=== PATIENT | female | born 1990 | race African-American/Black ===

== ENCOUNTER 2017-06-12 10:40 | Day surgery (SDC) | payer BC, OTHER ==
[2017-06-12 11:30] VITALS: BMI 28.3
[2017-06-12 11:38] VITALS: BP 119/77; TEMP 98.7
--- NOTE | 2017-06-12 13:16 | PRG ---
DATE OF SERVICE: 06/12/2017 PRIMARY OB: Dr. Rayshawn Regan CHIEF COMPLAINT: Decreased movement. HISTORY OF PRESENT ILLNESS: The patient is a 26-year-old G2, P0 female with an intrauterine pregnanc y at 34 weeks gestation who is presenting with decreased movement this morning when she woke up from bed. The patient has a history of a 37-week demise. The patient is being followed by Dr Jeison Regan and [facility]. The patient reports that the baby has been growing well and having appropriate reassuring results on weekly testing. The patient reports that she took her b lood pressure at home and noted it to be a little bit higher than she normally has experienced. The patient reports she has a history of chronic hypertension and was taken off medications with this pre gnancy and has had otherwise normal pressures up to now. The patient's biggest concern is well being and is worried about having another demise. The patient denies any recent illness, fever. She does report intermittent headaches, but has had th at through the . She denies vomiting. She does report some nausea. Denies chest pain, sh ortness of breath. Denies diarrhea, constipation. Denies rash, denies vaginal bleeding, leaking of fluid, urinary urgency. PAST MEDICAL HISTORY: Chronic hypertension. PAST SURGICAL HISTORY: Negative. ALLERGIES: No known drug allergies. MEDICATIONS: vitamins and aspirin. SOCIAL HISTORY: Denies drug, alcohol or tobacco use. OB LABS: Unavailable. REVIEW OF SYSTEMS: Per HPI. PHYSICAL EXAMINATION: VITAL SIGNS: Blood pressures have ranged from 119/77-132/76, heart rate in the 90s, satting 100% on room air. GENERAL: She appears to be in no acute distress. She is alert and oriented, and cooperative and ple asant to interact with. HEENT: Head is normocephalic, atraumatic. LUNGS: Clear to auscultation bilaterally. HEART: Regular rate and rhythm. ABDOMEN: Gravid, soft, nontender to palpation. EXTREMITIES: Nontender, nonedematous. GENITOURINARY: Has been deferred. heart tracing performed for decreased movement. Baseline was noted to be in the 140s wit h moderate long-term variability, positive accelerations, negative decelerations. Tocometer shows po ssibly irritability, not felt by the patient. A bedside ultrasound was performed for fluid assessmen t. Baby was noted to be in will breech presentation. There were several large pockets of fluid, on e being approximately 5 x 6 cm and the other one 3-1/2 to 4.5 cm, making the fluid assessment adequat e. ASSESSMENT AND PLAN: The patient is a 26-year-old G2, P1 female with an intrauterine at 34 weeks. The patient does report feeling the baby again since coming. Reassurance has been given to the patient as evidenced by a reactive NST and normal fluid level. She has an appointment next week with her doctor, Dr. Regan. She has been given labor precautions and has been counseled to r sujatha if she has any questions or concerns.
== END 2017-06-12 12:25 | disposition home or self-care (01) ==
LOC: L&D/OP 10:40
PROVIDERS: ATTEND Family Medicine
DX: O36.8130 Decreased fetal movements, third trimester, not applicable or unspecified (principal); O32.1XX0 Maternal care for breech presentation, not applicable or unspecified; O99.413 Diseases of the circulatory system complicating pregnancy, third trimester; I10 Essential (primary) hypertension; O99.89 Other specified diseases and conditions complicating pregnancy, childbirth and the puerperium; R11.2 Nausea with vomiting, unspecified; R51 Headache; Z79.82 Long term (current) use of aspirin; Z79.899 Other long term (current) drug therapy; Z3A.34 34 weeks gestation of pregnancy
CPT/HCPCS: 59025; 76815; 99282

== ENCOUNTER 2017-07-01 10:21 | Day surgery (SDC) | payer BC, OTHER ==
[2017-07-01 11:29] VITALS: BMI 27.3
--- NOTE | 2017-07-01 12:07 | ULT ---
BIOPHYSICAL PROFILE: Date: 07/01/17 HISTORY: Nonreactive stress test in office. TECHNIQUE: Multiplanar Maria scale and color Doppler images were obtained in a transabdominal ultrasound. T his is done for a biophysical profile. FINDINGS: There is a single live intrauterine with heart rate of 153 beats/minute. SALAS is 10.2 cm, wh ich is normal. A biophysical profile was performed. The fetus scored 8 of 8, which is normal. IMPRESSION: Normal biophysical profile. POS: [facility]
--- NOTE | 2017-07-01 13:01 | PDOC.EVN ---
Event Note - Event Note Event Note: Triage note @1300: Patient here per Dr Regan who is currently at [facility]. The patient was sent to L&D for NST and BPP. EGA is 35 weeks. I was asked to clear the patient for discharge home. The NST has moderate variabillity with limited accels. However, BPP was alsp performd per Dr. Regan's order and the score was 8/8. Total score is 8/10 ( limited accels for NST). History reviewed. No evidence of PTL at this time. BPs wnl. She has an appointment this with Dr Regan. OK for outpatient care. Patient seen at bedside. Info provided.
== END 2017-07-01 13:01 | disposition home or self-care (01) ==
LOC: L&D/OP 10:21
PROVIDERS: ATTEND Family Medicine
DX: O10.913 Unspecified pre-existing hypertension complicating pregnancy, third trimester (principal); Z3A.35 35 weeks gestation of pregnancy; Z79.82 Long term (current) use of aspirin; Z79.899 Other long term (current) drug therapy
CPT/HCPCS: 59025; 76819; 99281

== ENCOUNTER 2018-09-05 11:36 | Emergency (ER) | payer BC, OTHER ==
[2018-09-05 12:31] LABS: #Eosinphils 0.1 thou/uL (0.0-0.7); #Lymphocytes 2.1 thou/uL (1.20-3.40); #Monocytes 0.4 thou/uL (0.11-0.59); #Neutrophils 6.8 thou/uL (1.40-6.50); %Basophils 0.1 % (0.0-1.0); %Eosinophils 0.8 % (0.0-10.0); %Lymphocytes 21.9 % (21.0-51.0); %Monocytes 4.7 % (0.0-10.0); %Neutrophils 72.5 % (42.0-75.0); Hemoglobin 12.2 g/dL (12.0-16.0); Mean Corpuscular HGB CONC 34.3 g/dL (32.0-36.0); Mean Corpuscular Hemoglobin 31.1 pg (27.0-31.0); Mean Corpuscular Volume 90.6 fL (78.0-98.0); Mean Platelet Volume 8.5 fL (7.4-10.4); Platelet Count 222 thou/uL (130-400); RBC Distribution Width 12.1 % (11.5-14.5); Red Blood Cell (RBC) Count 3.94 mill/uL (4.20-5.40); White Blood Cell (WBC) Count 9.4 thou/uL (4.8-10.8)
[2018-09-05 12:59] LABS: ALT (SGPT) 9 U/L (8-55); AST (SGOT) 12 U/L (5-34); Albumin 3.8 g/dL (3.5-5.0); Alkaline Phosphatase 45 U/L (40-150); Anion Gap 14 mmol/L (10-20); BUN (Urea Nitrogen) 8 mg/dL (7.0-18.7); Bilirubin, Total 0.3 mg/dL (0.2-1.2); Calc. Creatinine Clearance 0 mL/min (70-130); Carbon Dioxide 19 mmol/L (22-29); Chloride 106 mmol/L (98-107); Estimated GFR-MDRD Greater than 90; Glucose 78 mg/dL (70-105); Potassium 3.8 mmol/L (3.5-5.1); Protein, Total 6.8 g/dL (6.0-8.3); Sodium 135 mmol/L (136-145)
== END 2018-09-05 13:20 | disposition left against medical advice (07) ==
LOC: ERS 11:36
DX: Z53.21 Procedure and treatment not carried out due to patient leaving prior to being seen by health care provider (principal)
CPT/HCPCS: 36415; 80053; 84702; 85025

== ENCOUNTER 2018-09-05 13:42 | Day surgery (SDC) | payer BC, OTHER ==
[2018-09-05 15:47] LABS: Bilirubin Negative (Negative); Blood, Urine Moderate (Negative); Clarity CLEAR (Clear); Glucose, Urine (Dipstick) Negative (Negative); Leukocyte Negative (Negative); Nitrite Negative (Negative); Protein, Urine (Dipstick) Negative (Neg-Trace); Specific Gravity, Urine 1.003 (1.002-1.036); Urobilinogen 0.2 mg/dL (0.2-1.0); pH, Urine 6.5 (5.0-9.0)
[2018-09-05 15:49] LABS: Bacteria/HPF None Seen HPF (None Seen); Hyaline Casts/LPF 0-3 HYALINE CAST LPF (0-3 Hyaline); Pathc Cast-AUWi Flag 0.13 (0-2.49); RBC/HPF 0-3 HPF (0-3); Squamous Epithelial None Seen HPF (0-3); WBC/HPF 0-3 HPF (0-3)
--- NOTE | 2018-09-05 17:02 | ULT ---
LIMITED OB ULTRASOUND: DATE: 09/05/2018. HISTORY: Vaginal bleeding in a patient with positive . FINDINGS: Multiple transabdominal sonographic images of the pelvis are obtained. There is a single intrauterin e gestation in transverse lie with the head to the maternal right. Cardiac Doppler does demonstrate heart tones with a heart rate of 157 b.p.m. The placenta is located posteriorly and the leading edge of the placenta is low-lying. No retroplace ntal hemorrhage is visualized. Subjectively, there is a normal amount of amniotic fluid. The cervical length measures 4.48 cm based on transabdominal imaging. anatomical structures or measurements were not obtained with this examination. IMPRESSION: 1. Single intrauterine gestation in transverse lie with heart tones documented. 2. The placenta is located posteriorly and is low-lying. Followup evaluation in 4 weeks is recommen ded. 3. Cervical length measures 4.6 cm. POS: [facility]
--- NOTE | 2018-09-05 23:08 | PRG ---
DATE OF SERVICE: 09/05/2018 PRIMARY OB: Dr. Rayshawn Regan. CHIEF COMPLAINT: Pelvic pain. HISTORY OF PRESENT ILLNESS: The patient is a 28-year-old, G3, P1 female with an intrauterine at 19 weeks gestation, who with a previous history of a 3rd trimester loss, believed to be related to preeclampsia for the patient, who presents to the emergency room with 4-hour history of intense crampy lower abdominal pain and pelvic pain and one episode of dark red blood on her toilet paper when wiping. The patient reports that her pain is noted in the left and the right that does not seem to improve or get worse with any particular activity and it is constant. The patient reports that she has had an upper respiratory infection with cough in the last couple of days. The patient denies fever, fall, headache, chest pain, shortness of breath, nausea, vomiting, diarrhea, constipation, hip problems, knee problems, muscle weakness. She reported one episode of vaginal bleeding when she wiped. Denies bloody urine or foul discharge or leakage of fluid. Denies urinary urgency or frequency. Denies anxiety or depression. PAST MEDICAL HISTORY: History of third trimester loss. PAST SURGICAL HISTORY: Negative. MEDICATIONS: vitamins. ALLERGIES: NO KNOWN DRUG ALLERGIES. SOCIAL HISTORY: Denies alcohol or drugs or tobacco use. OB LABORATORY DATA: Unavailable at time of dictation. REVIEW OF SYSTEMS: Per HPI. PHYSICAL EXAMINATION: VITAL SIGNS: Blood pressure 116/68, heart rate of 97, respiratory rate of 18. GENERAL: She appears to be in no acute distress. She is alert, oriented, cooperative, and pleasant to interact with. HEAD: Normocephalic, atraumatic. LUNGS: Clear to auscultation bilaterally. HEART: Has regular rate and rhythm. ABDOMEN: Gravid and soft. EXTREMITIES: Nontender, nonedematous. : Shows a vulva without masses, lesions, or erythema. Vagina is moist. There is a polyp visible on the ectocervix that is about less than a centimeter in diameter. Discharge does not appear unusual. Cervix is visibly closed and full. LABORATORY DATA: heart tracing shows Doppler heart tones in the 150s. Bedside ultrasound shows cervical length of 4.6 cm and UA is negative for protein, ketones, glucose. Positive for some heme but no red blood cells, no white blood cells, no leukocyte esterase, no bacteria, and no squamous cells. ASSESSMENT AND PLAN: The patient is a 28-year-old female G3, P1 with an intrauterine at 19 weeks, who presented with concerns for vaginal bleeding on toilet paper and some pelvic discomfort. There is no evidence of placental abruption or urinary tract infection or labor. Fetus is reassuring by Doppler heart tones with normal fluid and a normal-appearing cervix with normal length by ultrasound. The patient's discomfort may likely be musculoskeletal in nature, also may be associated with abdominal discomfort or GI discomfort. The patient has been given reassurance and has been discharged home with instructions to follow up with her primary OB as scheduled. Job ID: [id number]
== END 2018-09-05 16:14 | disposition home or self-care (01) ==
LOC: L&D/OP 13:42
PROVIDERS: ATTEND Family Medicine
DX: O99.89 Other specified diseases and conditions complicating pregnancy, childbirth and the puerperium (principal); R10.9 Unspecified abdominal pain; O46.92 Antepartum hemorrhage, unspecified, second trimester; Z3A.19 19 weeks gestation of pregnancy
CPT/HCPCS: 36415; 76815; 80053; 81001; 84702; 85025; 99283

== ENCOUNTER 2018-09-22 13:13 | Outpatient (CLI) | payer BC, OTHER ==
--- NOTE | 2018-09-22 14:18 | ULT ---
OBSTETRIC SONOGRAM: HISTORY: evaluation. Second trimester gestation. FINDINGS: Multiple transabdominal sonographic views of the gravid uterus show a single intrauterine gestation i n cephalic presentation. Amniotic fluid is within normal limits. Grade 0 placenta is posterior. Three -vessel cord shows a normal insertion. spine and kidneys are intact as visualized. No gross int racranial abnormalities. Four-chamber heart shows motion at 153 bpm. Measurements are as follows: Biparietal diameter 21 weeks 4 days. Head circumference 21 weeks 5 days. Abdominal circumference 21 weeks 3 days. Femur length 21 weeks 5 days. [place] 29th percentile. Estimated date of delivery based on today's sonogram is 01/29/2019. IMPRESSION: Single viable intrauterine gestation. Estimated gestational age based on today's sonogram 21 weeks 4 days. Transcribed Date/Time: 09/22/2018 2:32 PM
== END 2018-09-22 13:14 | disposition home or self-care (01) ==
LOC: SCSULT 13:13
PROVIDERS: ATTEND Family Medicine
DX: O09.892 Supervision of other high risk pregnancies, second trimester (principal); Z3A.21 21 weeks gestation of pregnancy
CPT/HCPCS: 76805

== ENCOUNTER → 2018-11-01 | Day surgery (SDC) | payer BC, OTHER ==
[2018-11-01 12:55] VITALS: BP 102/59; TEMP 98.3; BMI 25.8
--- NOTE | 2018-11-01 13:38 | PDOC.LDHP ---
Labor and Delivery H&P Chief complaint: other (back pain) HPI: 28 yo at 27.4w by LMP/reported 10w sonpallavi presents with back pain since last night. Noted that initially it would last for about 10 minutes then let up for a few hours. Then around 4 am, began to have back pain that has been constant. Took Tylenol at 0900 with no relief. Pain is a band across mid-lower back. Denies dysuria, hematuria, vaginal bleeding, vaginal discharge or LOF. Denies abdominal/RUQ pain and is feeling baby move regularly. Denies headache/ vision changes. Has h/o preE and IUFD at 37 weeks. Is on ASA. Current gestational age (weeks): 27 (27.4) Due date: 01/27/19 Dating criteria: last menstrual period, first trimester ultrasound Grav: 3 Para: 2 (2000) OB History Details: 1st - preE and IUFD at 37 weeks (states she had bad placenta and it was very small) 2nd - term at 37 weeks Current complications: none Abnormal US findings: No Past Medical History: PreE in first IUFD in first Current medications: pre-holly vitamins, other (ASA 81mg Tylenol PRN) Allergies/Adverse Reactions: Allergies Allergy/AdvReac Type Severity Reaction Status Date / Time No Known Allergies Allergy Verified 11/01/18 12:55 Social history: none - Physical Exam Vital signs reviewed and normal: yes General: resting Heart: RRR Lungs: CTAB Abdomen: gravid Extremeties: no edema FHT: category 1 (150/mod/+accels/no decels) [place] contractions every: none - Vaginal Exam cm dilated: 0 Effacement: 0% Station: -3 - OB Labs Blood type: unknown RH: unknown Antibody Screen: unknown HIV: unknown RPR: unknown HEPSAg: unknown 1 hour GCT: unknown GBS: unknown - Assessment 28 at 27.4w by LMP/reported 1T sono here with back pain 1. Back pain - No ctx on monitor or vaginal bleeding - FHT reassuring - Will encourage PO hydration and check for infection with VP3 and UA - Suspect round ligament or MSK pain 2. h/o IUFD - PP depression and mood seems depressed today - Denies SI/HI, encouraged to consider counseling again and/or pharmacotherpy - Denies abuse 3. h/o preE - Encouraged to be compliant with ASA therapy - BP WNL and has home cuff - checking regularly at home Will f/u UA and VP3, dispo pending results Addendum - Attending - Attending Attestation Date/Time: 11/01/18 5868 I personally evaluated the patient and discussed the management with Dr. Stallworth. I agree with the History, Examination, Assessment and Plan documented above.
[2018-11-01 14:22] LABS: Bilirubin Negative (Negative); Blood, Urine Negative (Negative); Clarity CLEAR (Clear); Glucose, Urine (Dipstick) Negative (Negative); Leukocyte Negative (Negative); Nitrite Negative (Negative); Protein, Urine (Dipstick) Trace mg/dL (Neg-Trace); Specific Gravity, Urine 1.037 (1.002-1.036); pH, Urine 6.5 (5.0-9.0)
[2018-11-01 14:25] LABS: Hyaline Casts/LPF 4-6 HYALINE CAST LPF (0-3 Hyaline); Pathc Cast-AUWi Flag 0.81 (0-2.49); RBC/HPF 0-3 HPF (0-3); WBC/HPF 0-3 HPF (0-3)
[2018-11-01 14:41] LABS: Bacteria/HPF Rare-Few HPF (None Seen)
--- NOTE | 2018-11-01 15:24 | PDOC.EVN ---
Event Note - Event Note Event Note: Labs reviewed and VP3 + for BV. Back pain minimal at this time. Urine appears concentrated on UA. Encouraged hydration and tylenol PRN. Will send rx for Flagyl for 1 week. F/u with Dr. Regan this week. All questions answered, patient feels ready to go at this time. Agree with above. Fhts stable, No UCs seen. UA nonfocal but concentrated. VP3 c/w BV. Home with Flagyl, precautions, encourage better po hydration. F/u with Dr. Regan as scheduled.
== END | disposition home or self-care (01) ==
LOC: L&D/OP 12:21
PROVIDERS: ATTEND Family Medicine
DX: O99.89 Other specified diseases and conditions complicating pregnancy, childbirth and the puerperium (principal); M54.5 Low back pain; O23.592 Infection of other part of genital tract in pregnancy, second trimester; B96.89 Other specified bacterial agents as the cause of diseases classified elsewhere; Z3A.27 27 weeks gestation of pregnancy; Z79.82 Long term (current) use of aspirin
CPT/HCPCS: 81001; 87480; 87510; 87660; 99285

== ENCOUNTER 2018-12-31 11:56 | Day surgery (SDC) | payer BC, OTHER ==
[2018-12-31] MEDS ORDERED: hydrALAZINE 20 MG/ML VIAL SLOW IVP PRN (11:58)
[2018-12-31 12:34] VITALS: BMI 28.1
[2018-12-31 13:05] LABS: #Eosinphils 0.1 thou/uL (0.0-0.7); #Lymphocytes 1.6 thou/uL (1.20-3.40); #Monocytes 0.6 thou/uL (0.11-0.59); #Neutrophils 6.5 thou/uL (1.40-6.50); %Basophils 0.1 % (0.0-1.0); %Eosinophils 0.7 % (0.0-10.0); %Lymphocytes 18.2 % (21.0-51.0); %Monocytes 6.7 % (0.0-10.0); %Neutrophils 74.2 % (42.0-75.0); Hemoglobin 10.6 g/dL (12.0-16.0); Mean Corpuscular HGB CONC 31.7 g/dL (32.0-36.0); Mean Corpuscular Hemoglobin 26.4 pg (27.0-31.0); Mean Corpuscular Volume 83.2 fL (78.0-98.0); Mean Platelet Volume 9.8 fL (7.4-10.4); Platelet Count 217 thou/uL (130-400); RBC Distribution Width 13.6 % (11.5-14.5); Red Blood Cell (RBC) Count 4.02 mill/uL (4.20-5.40); White Blood Cell (WBC) Count 8.7 thou/uL (4.8-10.8)
[2018-12-31 13:26] LABS: ALT (SGPT) Less than 7 U/L (8-55); AST (SGOT) 10 U/L (5-34); Albumin 3.5 g/dL (3.5-5.0); Alkaline Phosphatase 92 U/L (40-150); Anion Gap 11 mmol/L (10-20); BUN (Urea Nitrogen) 7 mg/dL (7.0-18.7); Bilirubin, Total 0.3 mg/dL (0.2-1.2); Calc. Creatinine Clearance 191 mL/min (70-130); Calcium 8.3 mg/dL (7.8-10.44); Carbon Dioxide 18 mmol/L (22-29); Chloride 108 mmol/L (98-107); Estimated GFR-MDRD Greater than 90; Globulin 2.8 g/dL (2.4-3.5); Glucose 74 mg/dL (70-105); Potassium 3.7 mmol/L (3.5-5.1); Protein, Total 6.3 g/dL (6.0-8.3); Sodium 133 mmol/L (136-145)
[2018-12-31] MEDS: diphenhydrAMINE 50 MG/ML VIAL IVP SCH ×2 (13:31→14:30)
[2018-12-31] MEDS: Metoclopramide HCl 10 MG/2 ML VIAL IVP PRN ×4 (13:31→15:01)
[2018-12-31 13:51] LABS: Creatinine, Urine 212.08 mg/dL (47-110)
[2018-12-31] MEDS ORDERED: Lactated Ringer's 1,000 ML IV SCH (14:00)
--- NOTE | 2018-12-31 15:25 | PDOC.LDHP ---
Labor and Delivery H&P Chief complaint: other (PIH workup) HPI: 28 y/o at 36w1d, patient of Dr. Regan, presents for PIH workup. Patient reports PUGA that wouldn't go away with tylenol today (650mg) and has a history of loss at 37 weeks for preeclampsia. Denies VB, LOF, ctx, RUQ pain or other concerns. +FM. ROS neg for HEENT, CV, pulm, GI, , neuro, psych, skin, musculoskeletal, or constitutional symptoms other than mentioned above. OB History Details: 2 prior term - 1st pregancy IUFD at 37 weeks for preeclampsia Current complications: none Previous surgical history: none Allergies/Adverse Reactions: Allergies Allergy/AdvReac Type Severity Reaction Status Date / Time No Known Allergies Allergy Verified 12/31/18 12:29 Social history: none - Physical Exam Vital signs reviewed and normal: yes General: NAD, resting Lungs: nonlabored breathing Abdomen: gravid Extremeties: no edema FHT: category 1 (130s, mod variability, + accels, no decels) [place] contractions every: None - Assessment 28 y/o at 36w1d with no e/o preeclampsia. BPs all wnl, labs wnl, pr:cr 0.1. status reassuring with reactive NST. - Plan -: D/c home with precautions. Advised to keep all appointments.
== END 2018-12-31 15:45 ==
LOC: L&D/OP 11:56 → EDSTATUS 12:12 → L&D/OP 15:45
PROVIDERS: ATTEND Family Medicine
DX: O99.89 Other specified diseases and conditions complicating pregnancy, childbirth and the puerperium (principal); R51 Headache; Z87.59 Personal history of other complications of pregnancy, childbirth and the puerperium; Z3A.36 36 weeks gestation of pregnancy; Z79.899 Other long term (current) drug therapy
CPT/HCPCS: 36415; 80053; 82570; 84156; 85025; 96360; 96361; 96375; 99284; J1200; J2765

== ENCOUNTER 2025-05-07 10:46 | Emergency (ER) | payer SELFPAY ==
[2025-05-07 11:51] LABS: #Basophils 0.05 10x3/uL (0.0-0.2); #Eosinophils 0.16 10x3/uL (0.0-0.7); #Monocytes 0.41 10x3/uL (0.11-0.59); #Neutrophils 5.68 10x3/uL (1.40-6.50); %Basophils 0.6 % (0.0-1.0); %Eosinophils 2.0 % (0.0-10.0); %Lymphocytes 22.0 % (21.0-51.0); %Monocytes 5.1 % (0.0-10.0); %Neutrophils 70.1 % (42.0-75.0); Hematocrit 39.1 % (36.0-47.0); Hemoglobin 12.6 g/dL (12.0-16.0); Mean Corpuscular Hemoglobin 28.6 pg (27.0-31.0); Mean Corpuscular Volume 88.7 fL (78.0-98.0); Platelet Count 329 10x3/uL (130-400); Red Blood Cell (RBC) Count 4.41 mill/uL (4.20-5.40); White Blood Cell (WBC) Count 8.10 10x3/uL (4.8-10.8)
[2025-05-07 12:04] LABS: Bacteria/HPF None Seen HPF (None Seen); CAUTI Indications for Culture Dysuria,urgency,freq; Glucose, Urine (Dipstick) Normal (Negative); Leukocyte 25 Leu/uL (Negative); Protein, Urine (Dipstick) 20 mg/dL (Neg-Trace); Specific Gravity, Urine 1.027 (1.002-1.036)
[2025-05-07 12:05] LABS: BHCG - Serum Negative (NEGATIVE); Pregs Control Background? CLEAR/WHITE (CLR/WHITE); Pregs Control Bar Appear? YES (CONTROL BAR); Urine Culture Reflex No No
[2025-05-07 12:17] LABS: ALT (SGPT) 16 U/L (Less than 34); AST (SGOT) 21 U/L (11-34); Albumin 3.9 g/dL (3.1-4.5); Alkaline Phosphatase 43 U/L (40-110); Anion Gap 14 mmol/L (10-20); BUN (Urea Nitrogen) 11 mg/dL (7.0-18.7); Bilirubin, Total 0.3 mg/dL (0.3-1.2); Calc. Creatinine Clearance 0 mL/min (70-130); Calcium 9.1 mg/dL (7.8-10.44); Carbon Dioxide 20 mmol/L (22-29); Chloride 109 mmol/L (98-107); Globulin 3.1 g/dL (2.4-3.5); Glucose 80 mg/dL (70-105); Lipase 29 U/L (8-78); Potassium 4.0 mmol/L (3.5-5.1); Sodium 139 mmol/L (136-145)
== END 2025-05-07 14:18 | disposition home or self-care (01) ==
LOC: ERS 10:46
DX: D25.9 Leiomyoma of uterus, unspecified (principal); N93.8 Other specified abnormal uterine and vaginal bleeding; I10 Essential (primary) hypertension
CPT/HCPCS: 76856; 80053; 81001; 83690; 84703; 85025